=== PATIENT | male | born 1975 | race Caucasian/White ===

== ENCOUNTER → 2021-01-28 12:29 | Outpatient (BNVA) | payer OTHER, SELFPAY | PROVIDERS: Visit Provider Internal Medicine | DX: M25.312 Other instability, left shoulder (principal) | CPT/HCPCS: 99202 ==

== ENCOUNTER → 2021-11-15 12:25 | Outpatient (BNVA) | payer OTHER, SELFPAY | PROVIDERS: Visit Provider Physician Assistant Medical | DX: T23.071D Burn of unspecified degree of right wrist, subsequent encounter (principal); T65 Toxic effect of other and unspecified substances | CPT/HCPCS: 99202 ==